=== PATIENT | male | born 1985 | race American Indian/Alaskan Native ===

== ENCOUNTER 2016-09-23 11:06 | Outpatient (CLI) | payer BC ==
--- NOTE | 2016-09-23 13:25 | Cat Scan Report ---
CT LUMBAR SPINE WITHOUT CONTRAST History: Back pain. Technique: Helical CT with sagittal and coronal reformatted images. Comparison: None. Findings: Normal bone mineralization. The lumbar vertebral bodies, disc spaces, posterior elements, spinal canal and paraspinal soft tissues are unremarkable. There is no evidence for fracture, malalignment or bone lesion. No significant degenerative changes are appreciated. Impression: Normal CT lumbar spine.
== END 2016-09-23 11:07 | disposition home or self-care (01) ==
LOC: CT 11:06
PROVIDERS: ATTEND Family Medicine
DX: M54.5 Low back pain (principal)
CPT/HCPCS: 72131

== ENCOUNTER 2020-08-30 06:35 | Emergency (ER) | payer BC | END 2020-08-30 07:30 | disposition left against medical advice (07) | LOC: ED 06:35 | DX: S69.92XA Unspecified injury of left wrist, hand and finger(s), initial encounter (principal); Z53.21 Procedure and treatment not carried out due to patient leaving prior to being seen by health care provider; X58.XXXA Exposure to other specified factors, initial encounter; Y93.89 Activity, other specified; Y92.89 Other specified places as the place of occurrence of the external cause; Y99.8 Other external cause status ==